=== PATIENT | male | born 1960 | race Two or more races ===

== ENCOUNTER → 2017-09-05 | Outpatient (CLI) | payer OTHER | END | disposition home or self-care (01) | LOC: LAB 14:59 | DX: J10.1 Influenza due to other identified influenza virus with other respiratory manifestations (principal) ==

== ENCOUNTER 2020-10-03 17:43 | Emergency (ER) | payer OTHER ==
[~2020-10-03] VITALS: Ht 172.7 cm; Wt 88.5 kg
[2020-10-03] MEDS ORDERED: METFORMIN HCL500 M3 (17:55)
[2020-10-03] MEDS ORDERED: ZOCOR20 MG (17:55)
== END 2020-10-03 20:16 | disposition home or self-care (01) ==
LOC: ER 17:43
DX: B34.9 Viral infection, unspecified (principal); R53.1 Weakness; T50.Z95A Adverse effect of other vaccines and biological substances, initial encounter; Y92.89 Other specified places as the place of occurrence of the external cause; Z20.822 Contact with and (suspected) exposure to COVID-19

== ENCOUNTER 2023-08-13 17:19 | Emergency (ER) | payer OTHER ==
[~2023-08-13] VITALS: Ht 170.2 cm; Wt 90.7 kg
[~2023-08-13 17:19] MED LIST: METFORMIN HCL500 M3; ZOCOR20 MG
== END 2023-08-13 21:25 | disposition home or self-care (01) ==
LOC: ER 17:20
DX: T78.1XXA Other adverse food reactions, not elsewhere classified, initial encounter (principal); Z91.013 Allergy to seafood; E11.9 Type 2 diabetes mellitus without complications
CPT/HCPCS: 70360; 71046; 96365; 99284; J1200; J2405; J2930; J3490